=== PATIENT | female | born 1970 | race African-American/Black ===

== ENCOUNTER 2016-12-27 16:48 | Observation (INO) | payer SELFPAY ==
[~2016-12-27] VITALS: Ht 162.6 cm; Wt 79.4 kg
--- NOTE | 2016-12-27 17:46 | PHYS DOC ---
Adult General Chief Complaint Chief Complaint: ABDOMINAL PAIN HPI HPI Patient is a 46 year old female presenting to the emergency department for evaluation of abdominal pain vaginal bleeding and nausea. Patient is abdominal pain is bilateral lower quadrants however she says it is worse in the right lower quadrant. She says that she is starting her cycle and has had vaginal bleeding that has been heavy all day long. She has been told that she has fibroids and needs to have a hysterectomy however she says she has no insurance. Patient says she has no marketing analyst currently. She says the pain is quite intense however the pain improved shortly before I saw her. Patient is in no obvious distress with normal vital signs. Review of Systems Review of Systems Constitutional: Denies fever or chills [] Eyes: Denies change in visual acuity, redness, or eye pain [] HENT: Denies nasal congestion or sore throat [] Respiratory: Denies cough or shortness of breath [] Cardiovascular: No additional information not addressed in HPI [] GI: + abdominal pain, nausea, vomiting. No bloody stools or diarrhea [] : Denies dysuria or hematuria [] Musculoskeletal: Denies back pain or joint pain [] Integument: Denies rash or skin lesions [] Neurologic: Denies headache, focal weakness or sensory changes [] Current Medications Current Medications Current Medications Medications (Trade) Dose Ordered Sig/Zacarias Start Time Stop Time Status Last Admin Dose Admin Info (Do NOT chart on this entry -- for MONITORING) 1 each PRN DAILY PRN 12/27/16 18:15 12/29/16 18:14 Iohexol (Omnipaque 300 Mg/ml) 75 ml STK-MED ONCE 12/27/16 18:15 12/27/16 18:16 DC Allergies Allergies Allergies Coded Allergies Type Severity Reaction Last Updated Verified No Known Drug Allergies 12/27/16 No Physical Exam Physical Exam Constitutional: Well developed, well nourished, no acute distress, non-toxic appearance. [] HENT: Normocephalic, atraumatic, bilateral external ears normal, oropharynx moist, no oral exudates, nose normal. [] Eyes: PERRLA, EOMI, conjunctiva normal, no discharge. [] Neck: Normal range of motion, no tenderness, supple, no stridor. [] Cardiovascular:Heart rate regular rhythm, no murmur [] Lungs & Thorax: Bilateral breath sounds clear to auscultation [] Abdomen: Bowel sounds normal, soft, + diffuse lower tenderness, no rebound or guarding, no masses, no pulsatile masses. [] Skin: Warm, dry, no erythema, no rash. [] Back: No tenderness, no CVA tenderness. [] Extremities: No tenderness, no cyanosis, no clubbing, ROM intact, no edema. [] Neurologic: Alert and oriented X 3, normal motor function, normal sensory function, no focal deficits noted. [] Current Patient Data Vital Signs Vital Signs Date Time Temp Pulse Resp B/P (MAP) Pulse Ox O2 Delivery O2 Flow Rate FiO2 12/27/16 17:35 98.6 73 18 131/73 (92) 100 Room Air 98.6 Lab Values Laboratory Tests Test 12/27/16 17:23 12/27/16 17:55 12/27/16 18:05 POC Urine HCG, Qualitative Hcg negative (Negative) Urine Collection Type Void Urine Color Yellow Urine Clarity Cloudy Urine pH 7.5 Urine Specific [place] 1.010 Urine Protein Negative mg/dL (NEG-TRACE) Urine Glucose (UA) Negative mg/dL (NEG) Urine Ketones (Stick) Negative mg/dL (NEG) Urine Blood Large (NEG) Urine Nitrite Negative (NEG) Urine Bilirubin Negative (NEG) Urine Urobilinogen Dipstick 0.2 mg/dL (0.2 mg/dL) Urine Leukocyte Esterase Negative (NEG) Urine RBC >40 /HPF (0-2) Urine WBC Occ /HPF (0-4) Urine Squamous Epithelial Cells Few /LPF Urine Bacteria 0 /HPF (0-FEW) White Blood Count 11.5 x10^3/uL (4.0-11.0) H Red Blood Count 3.99 x10^6/uL (3.50-5.40) Hemoglobin 7.7 g/dL (12.0-15.5) L Hematocrit 25.9 % (36.0-47.0) L Mean Corpuscular Volume 65 fL (79-100) L Mean Corpuscular Hemoglobin 19 pg (25-35) L Mean Corpuscular Hemoglobin Concent 30 g/dL (31-37) L Red Cell Distribution Width 18.5 % (11.5-14.5) H Platelet Count 311 x10^3/uL (140-400) Neutrophils (%) (Auto) 68 % (31-73) Lymphocytes (%) (Auto) 21 % (24-48) L Monocytes (%) (Auto) 10 % (0-9) H Eosinophils (%) (Auto) 1 % (0-3) Basophils (%) (Auto) 1 % (0-3) Neutrophils # (Auto) 7.8 x10^3uL (1.8-7.7) H Lymphocytes # (Auto) 2.4 x10^3/uL (1.0-4.8) Monocytes # (Auto) 1.2 x10^3/uL (0.0-1.1) H Eosinophils # (Auto) 0.1 x10^3/uL (0.0-0.7) Basophils # (Auto) 0.1 x10^3/uL (0.0-0.2) Platelet Estimate Adequate (ADEQUATE) Polychromasia Mod Hypochromasia Slight Poikilocytosis Slight Microcytosis Mod Macrocytosis Slight Sodium Level 141 mmol/L (136-145) Potassium Level 3.4 mmol/L (3.5-5.1) L Chloride Level 107 mmol/L (98-107) Carbon Dioxide Level 24 mmol/L (21-32) Anion Gap 10 (6-14) Blood Urea Nitrogen 8 mg/dL (7-20) Creatinine 0.7 mg/dL (0.6-1.0) Estimated GFR (Cockcroft-Gault) 110.0 BUN/Creatinine Ratio 11 (6-20) Glucose Level 100 mg/dL (70-99) H Calcium Level 8.5 mg/dL (8.5-10.1) Magnesium Level 1.7 mg/dL (1.8-2.4) L Total Bilirubin 0.3 mg/dL (0.2-1.0) Aspartate Amino Transferase (AST) 18 U/L (15-37) Alanine Aminotransferase (ALT) 23 U/L (14-59) Alkaline Phosphatase 56 U/L (46-116) Total Protein 7.5 g/dL (6.4-8.2) Albumin 3.6 g/dL (3.4-5.0) Albumin/Globulin Ratio 0.9 (1.0-1.7) L Lipase 94 U/L (73-393) Laboratory Tests 12/27/16 18:05 Laboratory Tests 12/27/16 18:05 EKG EKG [] Radiology/Procedures Radiology/Procedures Examination: Ultrasound pelvis HISTORY: History of abnormal endometrium on CT scan TECHNIQUE: Transabdominal ultrasound examination the pelvis. COMPARISON: None available FINDINGS: The uterus measures 13.5 x 9.3 x 8.2 cm. The endometrium could not be identified. The right ovary measures 4.0 x 1.5 x 1.5 cm. Left ovary measures 4.4 x 2.2 x 2.0 cm. Blood flow in the right and left ovaries. Tiny cystic structure identified in the right ovary is a 1.6 cm probably a follicle. There is a large complex appearing heterogeneous mass identified in the uterus with vascular flow within. IMPRESSION: 1. Large complex appearing heterogeneous mass identified in the uterus. Differential includes large fibroid causing nonvisualization of the endometrium or an endometrial mass. Correlate clinically. Electronically signed by: Juan Carlos Chi MD (12/27/2016 8:19 PM) [facility] DICTATED and SIGNED BY: JUAN CARLOS CHI MD DATE: 12/27/162013 Examination: CT of the abdomen pelvis with IV contrast HISTORY: History of right pelvic pain since yesterday COMPARISON: None available Technique: Axial CT images of the abdomen pelvis were performed with IV contrast. Coronal and sagittal reformats are performed Exposure: One or more of the following individualized dose reduction techniques were utilized for this examination: 1. Automated exposure control 2. Adjustment of the mA and/or kV according to patient size 3. Use of iterative reconstruction technique FINDINGS: The bibasilar lungs grossly appears unremarkable. No evidence of free air identified in the abdomen. The visualized liver, spleen, adrenals grossly appears unremarkable. The gallbladder is mildly distended. The stomach is mildly distended. The visualized pancreas grossly appears unremarkable. The bilateral kidneys enhance symmetrically. The small bowel is nondilated. Feces and gas noted throughout the colon. The appendix is not clearly identified. There is enlarged heterogeneous appearance of the uterus with diffuse thickening of the endometrium with the cystic changes within. The adnexa could not be evaluated for this examination. Small amount of free fluid identified in the pelvis. The caliber of the aorta grossly appears unremarkable. No evidence of lytic bony destructive lesion. IMPRESSION: 1. Diffuse enlarged appearing uterus with diffuse thickening of the endometrium with multiple cystic structures within. Nonspecific could be secondary to bleeding within the endometrium or endometrial malignancy. Recommend ultrasound for further evaluation. 2 The appendix could not be identified. Electronically signed by: Juan Carlos Chi MD (12/27/2016 7:00 PM) [facility] DICTATED and SIGNED BY: JUAN CARLOS CHI MD DATE: 12/27/16 4534 Course & Med Decision Making Course & Med Decision Making Patient presenting to the emergency department for evaluation of abdominal pain that is likely from this complex mass in her uterus that is bleeding. She is now anemic and there is no prior for comparison. Given how profound her anemia is and I do not know if this will stop bleeding I spoke to the marketing analyst control equipment electrician Dr. Beatris Franks and he recommended admission for further observation and treatment. Will transfuse one unit of blood for now. Dragon Disclaimer Dragon Disclaimer This electronic medical record was generated, in whole or in part, using a voice recognition dictation system. Departure Departure Impression: Primary Impression: Uterine mass Additional Impressions: Vaginal bleeding Anemia Disposition: ADMITTED INPATIENT Admitting Physician: Other (P[place]) Condition: STABLE Problem Qualifiers SARAH HUNT DO Dec 27, 2016 17:46
[2016-12-27] MEDS ORDERED: CONTRAST GIVEN MC PRN (18:15)
[2016-12-27] MEDS ORDERED: IOHEXOL 300 MG/ML 75 ML VIAL ONE (18:15)
[2016-12-27] MEDS ORDERED: IOHEXOL 300 MG/ML 75 ML VIAL IV ONE (18:15)
[2016-12-27 18:20] LABS: BASO # 0.1 x10^3/uL (0.0-0.2); BASO % 1 % (0-3); EOS % 1 % (0-3); HEMATOCRIT 25.9 % (36.0-47.0); HEMOGLOBIN 7.7 g/dL (12.0-15.5); LYMPH # 2.4 x10^3/uL (1.0-4.8); LYMPH % 21 % (24-48); MEAN CORPUSCULAR HEMOGLOBIN 19 pg (25-35); MEAN CORPUSCULAR HGB CONC 30 g/dL (31-37); MEAN CORPUSCULAR VOLUME 65 fL (79-100); MONO % 10 % (0-9); NEUT % 68 % (31-73); PLATELET COUNT 311 x10^3/uL (140-400); RED BLOOD COUNT 3.99 x10^6/uL (3.50-5.40); RED CELL DISTRIBUTION WIDTH 18.5 % (11.5-14.5); WHITE BLOOD COUNT 11.5 x10^3/uL (4.0-11.0)
[2016-12-27 18:20] LABS: BILIRUBIN,URINE NEGATIVE (NEG); GLUCOSE,URINE NEGATIVE (NEG); NITRITE,URINE NEGATIVE (NEG); PH,URINE 7.5; PROTEIN,URINE NEGATIVE (NEG-TRACE); UROBILINOGEN,URINE 0.2 mg/dL (0.2 mg/dL)
[2016-12-27 18:29] LABS: BACTERIA,URINE 0 /HPF (0-FEW); RBC,URINE >40 /HPF (0-2); SQUAMOUS EPITHELIAL CELL,UR FEW /LPF; WBC,URINE OCC /HPF (0-4)
[2016-12-27 18:29] LABS: CALCIUM 8.5 mg/dL (8.5-10.1); CREATININE 0.7 mg/dL (0.6-1.0); POTASSIUM 3.4 mmol/L (3.5-5.1)
[2016-12-27 18:35] LABS: ALBUMIN 3.6 g/dL (3.4-5.0); ALBUMIN/GLOBULIN RATIO 0.9 (1.0-1.7); MAGNESIUM 1.7 mg/dL (1.8-2.4); TOTAL BILIRUBIN 0.3 mg/dL (0.2-1.0); TOTAL PROTEIN 7.5 g/dL (6.4-8.2)
--- NOTE | 2016-12-27 19:04 | RAD ---
Examination: CT of the abdomen pelvis with IV contrast HISTORY: History of right pelvic pain since yesterday COMPARISON: None available Technique: Axial CT images of the abdomen pelvis were performed with IV contrast. Coronal and sagittal reformats are performed Exposure: One or more of the following individualized dose reduction techniques were utilized for this examination: 1. Automated exposure control 2. Adjustment of the mA and/or kV according to patient size 3. Use of iterative reconstruction technique FINDINGS: The bibasilar lungs grossly appears unremarkable. No evidence of free air identified in the abdomen. The visualized liver, spleen, adrenals grossly appears unremarkable. The gallbladder is mildly distended. The stomach is mildly distended. The visualized pancreas grossly appears unremarkable. The bilateral kidneys enhance symmetrically. The small bowel is nondilated. Feces and gas noted throughout the colon. The appendix is not clearly identified. There is enlarged heterogeneous appearance of the uterus with diffuse thickening of the endometrium with the cystic changes within. The adnexa could not be evaluated for this examination. Small amount of free fluid identified in the pelvis. The caliber of the aorta grossly appears unremarkable. No evidence of lytic bony destructive lesion. IMPRESSION: 1. Diffuse enlarged appearing uterus with diffuse thickening of the endometrium with multiple cystic structures within. Nonspecific could be secondary to bleeding within the endometrium or endometrial malignancy. Recommend ultrasound for further evaluation. 2 The appendix could not be identified. Electronically signed by: Juan Carlos Chi MD (12/27/2016 7:00 PM) [facility]
[2016-12-27] MEDS ORDERED: fentaNYL PF VIAL 100 MCG/2 ML VIAL IV PRN (19:30)
[2016-12-27] MEDS ORDERED: ONDANSETRON PF 4 MG/2 ML VIAL. IV PRN (19:30)
--- NOTE | 2016-12-27 20:22 | RAD ---
Examination: Ultrasound pelvis HISTORY: History of abnormal endometrium on CT scan TECHNIQUE: Transabdominal ultrasound examination the pelvis. COMPARISON: None available FINDINGS: The uterus measures 13.5 x 9.3 x 8.2 cm. The endometrium could not be identified. The right ovary measures 4.0 x 1.5 x 1.5 cm. Left ovary measures 4.4 x 2.2 x 2.0 cm. Blood flow in the right and left ovaries. Tiny cystic structure identified in the right ovary is a 1.6 cm probably a follicle. There is a large complex appearing heterogeneous mass identified in the uterus with vascular flow within. IMPRESSION: 1. Large complex appearing heterogeneous mass identified in the uterus. Differential includes large fibroid causing nonvisualization of the endometrium or an endometrial mass. Correlate clinically. Electronically signed by: Juan Carlos Cih MD (12/27/2016 8:19 PM) [facility]
[2016-12-27 20:58] LABS: HYPOCHROMIA SLIGHT; MICROCYTOSIS MOD; PLT ESTIMATE ADEQUATE (ADEQUATE); POIKILOCYTOSIS SLIGHT; POLYCHROMASIA MOD
[2016-12-27 21:30] VITALS: BP 116/71
[2016-12-27 22:35] VITALS: BP 116/71
[2016-12-28] MEDS: IV RINGERS,LACTATED 1000ML 1,000 ML IV SCH ×2 (00:29→08:52)
[2016-12-28 01:00] VITALS: BP 89/52
[2016-12-28 05:32] VITALS: BP 107/67
[2016-12-28 06:24] LABS: CALCIUM 8.1 mg/dL (8.5-10.1); CREATININE 0.6 mg/dL (0.6-1.0); GFR 131.4; POTASSIUM 3.6 mmol/L (3.5-5.1)
[2016-12-28 06:34] LABS: BASO # 0.1 x10^3/uL (0.0-0.2); BASO % 1 % (0-3); EOS % 3 % (0-3); HEMATOCRIT 25.7 % (36.0-47.0); LYMPH # 2.2 x10^3/uL (1.0-4.8); LYMPH % 31 % (24-48); MEAN CORPUSCULAR HEMOGLOBIN 21 pg (25-35); MEAN CORPUSCULAR HGB CONC 31 g/dL (31-37); MEAN CORPUSCULAR VOLUME 66 fL (79-100); MONO % 14 % (0-9); NEUT % 52 % (31-73); PLATELET COUNT 261 x10^3/uL (140-400); RED BLOOD COUNT 3.88 x10^6/uL (3.50-5.40); RED CELL DISTRIBUTION WIDTH 20.9 % (11.5-14.5)
[2016-12-28] MEDS: oxyCODONE/APAP 7.5/325 1 TAB TABLET PO PRN ×2 (08:53→14:10)
[2016-12-28 10:59] VITALS: BP 106/63
[2016-12-28 13:20] VITALS: BP 115/59
--- NOTE | 2016-12-28 13:21 | PDOC1 ---
History and Physical Date of Admission Date of Admission DATE: 12/28/16 TIME: 13:15 Identification/Chief Complaint Chief Complaint abd pain Problems: Source Source: Chart review, Patient History of Present Illness History of Present Illness 46 y/o presented to ED with c/o CPP and h/o AUB for past few months. SHe is established with Printer Technician at and in process of completing hysterectomy. Pelvic sono indicated degenerating fibroid in central uterine cavity. Pt. also with severe anemia and required blood transfusion. Past Medical History Cardiovascular: No pertinent hx Pulmonary: No pertinent hx GI: No pertinent hx Heme/Onc: Iron deficiency Anemia Past Surgical History Past Surgical History: Tubal Ligation Current Problem List Problem List Problems Medical Problems: (1) Anemia Status: Acute (2) Uterine mass Status: Acute (3) Vaginal bleeding Status: Acute Problems: Current Medications Current Medications Current Medications Iohexol (Omnipaque 300 Mg/ml) 75 ml 1X ONCE IV Last administered on 12/27/16 18:35; Start 12/27/16 at 18:15; Stop 12/27/16 at 18:16; Status DC Info (Do NOT chart on this entry -- for MONITORING) 1 each PRN DAILY PRN MC SEE COMMENTS; Start 12/27/16 at 18:15; Stop 12/29/16 at 18:14 Iohexol (Omnipaque 300 Mg/ml) 75 ml STK-MED ONCE .ROUTE ; Start 12/27/16 at 18:15 ; Stop 12/27/16 at 18:16; Status DC Ondansetron HCl (Zofran) 4 mg PRN Q8HRS PRN IV NAUSEA/VOMITING; Start 12/27/16 at 19:30; Stop 12/28/16 at 19:29 Fentanyl Citrate (Fentanyl 2ml Vial) 50 mcg PRN Q2HR PRN IV PAIN; Start at 19:30; Stop 12/28/16 at 19:29 Ringer's Solution 1,000 ml @ 150 mls/hr Q6H40M IV Last administered on 08:52; Start 12/27/16 at 21:15 Oxycodone/ Acetaminophen (Percocet 7.5/ 325) 1 tab PRN Q4HRS PRN PO MODERATE TO SEVERE PAIN Last administered on 12/28/16 08:53; Start 12/28/16 at 08:30 Allergies Allergies: Coded Allergies: No Known Drug Allergies (Unverified , 12/27/16) ROS General: YES: Fatigue, No: Chills, Night Sweats, Malaise, Appetite, Other PSYCHOLOGICAL ROS: No: Anxiety, Behavioral Disorder, Concentration difficultie , Decreased libido, Depression, Disorientation, Hallucinations, Hostility, Irritablity, Memory difficulties, Mood Swings, Obsessive thoughts, Physical abuse, Sexual abuse, Sleep disturbances, Suicidal ideation, Other Eyes: No Blurry vision, No Decreased vision, No Double vision, No Dry eyes, No Excessive tearing, No Eye Pain, No Itchy Eyes, No Loss of vision, No Photophobia , No Scotomata, No Uses contacts, No Uses glasses, No Other HEENT: No: Heacaches, Visual Changes, Hearing change, Nasal congestion, Nasal discharge, Oral lesions, Sinus pain, Sore Throat, Epistaxis, Sneezing, Snoring, Tinnitus, Vertigo, Vocal changes, Other ALLERGY AND IMMUNOLOGY: No: Hives, Insect Bite Sensitivity, Itchy/Watery Eyes, Nasal Congestion, Post Nasal Drip, Seasonal Allergies, Other Hematological and Lymphatic: No: Bleeding Problems, Blood Clots, Blood Transfusions, Brusing, Night Sweats, Pallor, Swollen Lymph Nodes, Other ENDOCRINE: No: Breast Changes, Galactorrhea, Hair Pattern Changes, Hot Flashes , Malaise/lethargy, Mood Swings, Palpitations, Polydipsia/polyuria, Skin Changes , Temperature Intolerance, Unexpected Weight Changes, Other Breast: No New/Changing Breast Lumps, No Nipple changes, No Nipple discharge, No Other Respiratory: No: Cough, Hemoptysis, Orthopnea, Pleuritic Pain, Shortness of breath, SOB with excertion, Sputum Changes, Stridor, Tachypnea, Wheezing, Other Cardiovascular: No Chest Pain, No Palpitations, No Orthopnea, No Paroxysmal Noc. Dyspnea, No Edema, No Lt Headedness, No Other Gastrointestinal: Yes Abdominal Pain Physical Exam General: Alert, Oriented X3, Cooperative HEENT: Atraumatic Lungs: Clear to auscultation Heart: S1S2 Cardiovascular: S1 Breasts: Normal Abdomen: Normal bowel sounds, Soft, Other (moderate uterine tenderness with palpable fibroid present.) Vitals Vitals Vital Signs Date Time Temp Pulse Resp B/P (MAP) Pulse Ox O2 Delivery O2 Flow Rate FiO2 12/28/16 10:59 98.1 59 16 106/63 (77) 100 Room Air 98.1 Labs Labs Laboratory Tests Test 12/27/16 17:23 12/27/16 17:55 12/27/16 18:05 12/28/16 06:00 Bedside Urine HCG, Qualitative Hcg negative (Negative) Urine Collection Type Void Urine Color Yellow Urine Clarity Cloudy Urine pH 7.5 Urine Specific [place] 1.010 Urine Protein Negative mg/dL (NEG-TRACE) Urine Glucose (UA) Negative mg/dL (NEG) Urine Ketones (Stick) Negative mg/dL (NEG) Urine Blood Large (NEG) Urine Nitrite Negative (NEG) Urine Bilirubin Negative (NEG) Urine Urobilinogen Dipstick 0.2 mg/dL (0.2 mg/dL) Urine Leukocyte Esterase Negative (NEG) Urine RBC >40 /HPF (0-2) Urine WBC Occ /HPF (0-4) Urine Squamous Epithelial Cells Few /LPF Urine Bacteria 0 /HPF (0-FEW) White Blood Count 11.5 x10^3/uL (4.0-11.0) 7.0 x10^3/uL (4.0-11.0) Red Blood Count 3.99 x10^6/uL (3.50-5.40) 3.88 x10^6/uL (3.50-5.40) Hemoglobin 7.7 g/dL (12.0-15.5) 8.0 g/dL (12.0-15.5) Hematocrit 25.9 % (36.0-47.0) 25.7 % (36.0-47.0) Mean Corpuscular Volume 65 fL (79-100) 66 fL (79-100) Mean Corpuscular Hemoglobin 19 pg (25-35) 21 pg (25-35) Mean Corpuscular Hemoglobin Concent 30 g/dL (31-37) 31 g/dL (31-37) Red Cell Distribution Width 18.5 % (11.5-14.5) 20.9 % (11.5-14.5) Platelet Count 311 x10^3/uL (140-400) 261 x10^3/uL (140-400) Neutrophils (%) (Auto) 68 % (31-73) 52 % (31-73) Lymphocytes (%) (Auto) 21 % (24-48) 31 % (24-48) Monocytes (%) (Auto) 10 % (0-9) 14 % (0-9) Eosinophils (%) (Auto) 1 % (0-3) 3 % (0-3) Basophils (%) (Auto) 1 % (0-3) 1 % (0-3) Neutrophils # (Auto) 7.8 x10^3uL (1.8-7.7) 3.6 x10^3uL (1.8-7.7) Lymphocytes # (Auto) 2.4 x10^3/uL (1.0-4.8) 2.2 x10^3/uL (1.0-4.8) Monocytes # (Auto) 1.2 x10^3/uL (0.0-1.1) 1.0 x10^3/uL (0.0-1.1) Eosinophils # (Auto) 0.1 x10^3/uL (0.0-0.7) 0.2 x10^3/uL (0.0-0.7) Basophils # (Auto) 0.1 x10^3/uL (0.0-0.2) 0.1 x10^3/uL (0.0-0.2) Platelet Estimate Adequate (ADEQUATE) Polychromasia Mod Hypochromasia Slight Poikilocytosis Slight Microcytosis Mod Macrocytosis Slight Sodium Level 141 mmol/L (136-145) 140 mmol/L (136-145) Potassium Level 3.4 mmol/L (3.5-5.1) 3.6 mmol/L (3.5-5.1) Chloride Level 107 mmol/L (98-107) 108 mmol/L (98-107) Carbon Dioxide Level 24 mmol/L (21-32) 25 mmol/L (21-32) Anion Gap 10 (6-14) 7 (6-14) Blood Urea Nitrogen 8 mg/dL (7-20) 8 mg/dL (7-20) Creatinine 0.7 mg/dL (0.6-1.0) 0.6 mg/dL (0.6-1.0) Estimated GFR (Cockcroft-Gault) 110.0 131.4 BUN/Creatinine Ratio 11 (6-20) Glucose Level 100 mg/dL (70-99) 98 mg/dL (70-99) Calcium Level 8.5 mg/dL (8.5-10.1) 8.1 mg/dL (8.5-10.1) Magnesium Level 1.7 mg/dL (1.8-2.4) Total Bilirubin 0.3 mg/dL (0.2-1.0) Aspartate Amino Transf (AST/SGOT) 18 U/L (15-37) Alanine Aminotransferase (ALT/SGPT) 23 U/L (14-59) Alkaline Phosphatase 56 U/L (46-116) Total Protein 7.5 g/dL (6.4-8.2) Albumin 3.6 g/dL (3.4-5.0) Albumin/Globulin Ratio 0.9 (1.0-1.7) Lipase 94 U/L (73-393) Laboratory Tests Test 12/27/16 17:23 12/27/16 17:55 12/27/16 18:05 12/28/16 06:00 Bedside Urine HCG, Qualitative Hcg negative (Negative) Urine Collection Type Void Urine Color Yellow Urine Clarity Cloudy Urine pH 7.5 Urine Specific [place] 1.010 Urine Protein Negative mg/dL (NEG-TRACE) Urine Glucose (UA) Negative mg/dL (NEG) Urine Ketones (Stick) Negative mg/dL (NEG) Urine Blood Large (NEG) Urine Nitrite Negative (NEG) Urine Bilirubin Negative (NEG) Urine Urobilinogen Dipstick 0.2 mg/dL (0.2 mg/dL) Urine Leukocyte Esterase Negative (NEG) Urine RBC >40 /HPF (0-2) Urine WBC Occ /HPF (0-4) Urine Squamous Epithelial Cells Few /LPF Urine Bacteria 0 /HPF (0-FEW) White Blood Count 11.5 x10^3/uL (4.0-11.0) 7.0 x10^3/uL (4.0-11.0) Red Blood Count 3.99 x10^6/uL (3.50-5.40) 3.88 x10^6/uL (3.50-5.40) Hemoglobin 7.7 g/dL (12.0-15.5) 8.0 g/dL (12.0-15.5) Hematocrit 25.9 % (36.0-47.0) 25.7 % (36.0-47.0) Mean Corpuscular Volume 65 fL (79-100) 66 fL (79-100) Mean Corpuscular Hemoglobin 19 pg (25-35) 21 pg (25-35) Mean Corpuscular Hemoglobin Concent 30 g/dL (31-37) 31 g/dL (31-37) Red Cell Distribution Width 18.5 % (11.5-14.5) 20.9 % (11.5-14.5) Platelet Count 311 x10^3/uL (140-400) 261 x10^3/uL (140-400) Neutrophils (%) (Auto) 68 % (31-73) 52 % (31-73) Lymphocytes (%) (Auto) 21 % (24-48) 31 % (24-48) Monocytes (%) (Auto) 10 % (0-9) 14 % (0-9) Eosinophils (%) (Auto) 1 % (0-3) 3 % (0-3) Basophils (%) (Auto) 1 % (0-3) 1 % (0-3) Neutrophils # (Auto) 7.8 x10^3uL (1.8-7.7) 3.6 x10^3uL (1.8-7.7) Lymphocytes # (Auto) 2.4 x10^3/uL (1.0-4.8) 2.2 x10^3/uL (1.0-4.8) Monocytes # (Auto) 1.2 x10^3/uL (0.0-1.1) 1.0 x10^3/uL (0.0-1.1) Eosinophils # (Auto) 0.1 x10^3/uL (0.0-0.7) 0.2 x10^3/uL (0.0-0.7) Basophils # (Auto) 0.1 x10^3/uL (0.0-0.2) 0.1 x10^3/uL (0.0-0.2) Platelet Estimate Adequate (ADEQUATE) Polychromasia Mod Hypochromasia Slight Poikilocytosis Slight Microcytosis Mod Macrocytosis Slight Sodium Level 141 mmol/L (136-145) 140 mmol/L (136-145) Potassium Level 3.4 mmol/L (3.5-5.1) 3.6 mmol/L (3.5-5.1) Chloride Level 107 mmol/L (98-107) 108 mmol/L (98-107) Carbon Dioxide Level 24 mmol/L (21-32) 25 mmol/L (21-32) Anion Gap 10 (6-14) 7 (6-14) Blood Urea Nitrogen 8 mg/dL (7-20) 8 mg/dL (7-20) Creatinine 0.7 mg/dL (0.6-1.0) 0.6 mg/dL (0.6-1.0) Estimated GFR (Cockcroft-Gault) 110.0 131.4 BUN/Creatinine Ratio 11 (6-20) Glucose Level 100 mg/dL (70-99) 98 mg/dL (70-99) Calcium Level 8.5 mg/dL (8.5-10.1) 8.1 mg/dL (8.5-10.1) Magnesium Level 1.7 mg/dL (1.8-2.4) Total Bilirubin 0.3 mg/dL (0.2-1.0) Aspartate Amino Transf (AST/SGOT) 18 U/L (15-37) Alanine Aminotransferase (ALT/SGPT) 23 U/L (14-59) Alkaline Phosphatase 56 U/L (46-116) Total Protein 7.5 g/dL (6.4-8.2) Albumin 3.6 g/dL (3.4-5.0) Albumin/Globulin Ratio 0.9 (1.0-1.7) Lipase 94 U/L (73-393) VTE Prophylaxis Ordered VTE Prophylaxis Devices: No VTE Pharmacological Prophylaxi: No Assessment/Plan Assessment/Plan A: Degenerating Fibroid P: Pain management. F/u [facility] for hysterectomy with established Printer Technician. DELPHINE HENRY Jr, MD Dec 28, 2016 13:21
--- NOTE | 2016-12-28 13:21 | DISCH ---
DISCHARGE INSTRUCTIONS Condition on Discharge Condition on Discharge: Stable Activity After Discharge Activity Instructions for Disc: Activity as tolerated Lifting Instructions after Dis: No heavy lifting Driving Instructions after Dis: Do not drive today Diet after Discharge Diet after Discharge: Regular Contacting the DRWinnie after DC Call your doctor for: Concerns you may have Follow-Up Follow up with: [facility] DELPHINE HENRY Jr, MD Dec 28, 2016 13:21
[2016-12-28] MEDS ORDERED: OXYC-327 PO (13:25)
== END 2016-12-28 13:45 | disposition home or self-care (01) ==
LOC: ER 16:48 → 3 NORTH 19:18
PROVIDERS: ADMIT Obstetrics & Gynecology; ATTEND Obstetrics & Gynecology
DX: D25.9 Leiomyoma of uterus, unspecified (principal); D64.9 Anemia, unspecified
CPT/HCPCS: 36415; 36430; 74177; 76856; 80048; 80053; 81001; 81025; 83690; 83735; 85025; 86850; 86870; 86900; 86901; 86902; 86922; 96360; 96361; 99285; G0378; P9016; Q9967; G0379; J7120